=== PATIENT | male | born 1935 | race Caucasian/White ===

== ENCOUNTER 2017-03-09 13:37 | Inpatient (IN) | payer OTHER, MEDICARE ==
[~2017-03-09] VITALS: Ht 185.4 cm; Wt 62.4 kg
[~2017-03-09 13:37] MED LIST: ALPR1TAB3 PO; CHLO.12%30 SWISH-SPIT; CLIN1CAP5 PO; HYDR-3533 PO; SARA20TA PO
[2017-03-09] MEDS ORDERED: SODIUM CHLORIDE 0.9% FLUSH 10 ML FLUSH IVF PRN (13:45)
--- NOTE | 2017-03-09 13:45 | PD ---
HPI Chief Complaint: RT HIP PAIN Time Seen by Provider: 13:42 Travel History International Travel<30 days: No Contact w/Intl Traveler<30days: No Traveled to known affect area: No History of Present Illness HPI AFTER A MECHANICAL SLIP AND FALL , LANDED ON RT HIP AREA AND UNABLE TO PLACE WEIGHT OR AMBULATE, PER EMS GIVEN MORPHINE 10MG AND NOTED TO HAVE SHORTENED AND EXTERNALLY ROTATED RIGHT LE...INITIALLY 10/10, NOW 4/10 AND MUCH IMPROVED LONG HE'S STILL...WORSEWITH MOVEMENT PFSH Past Medical History Autoimmune Disease: No Anxiety: Yes Heart Rhythm Problems: Yes (presently irregular ) Cancer: No Chemotherapy: No Diabetes: No Endocrine: No Gastrointestinal Disorders: Yes Genitourinary: No Implanted Vascular Access Dvce: No Respiratory: No Radiation Therapy: No Thyroid Disease: No Past Surgical History Abdominal Surgery: Yes (choly ) Cholecystectomy: Yes Other Surgery: Yes Social History Alcohol Use: No Tobacco Use: Yes (1 PACK EVERY 3 DAYS) Substance Use: No Allergies-Medications (Allergen,Severity, Reaction): Coded Allergies: No Known Allergies (Unverified , 02/19/16) Reported Meds & Prescriptions Reported Meds & Active Scripts Active Reported Mirtazapine 15 Mg Tab 15 Mg PO HS Prozac (Fluoxetine HCl) 10 Mg Cap 20 Mg PO BID Alprazolam 1 Mg Tab 1 Mg PO Q6H PRN Review of Systems Except as stated in HPI: all other systems reviewed are Neg Musculoskeletal: Positive: Limited ROM, Pain Physical Exam Narrative GENERAL: SKIN: Warm and dry. HEAD: Atraumatic. Normocephalic. EYES: Pupils equal and round. No scleral icterus. No injection or drainage. ENT: No nasal bleeding or discharge. Mucous membranes pink and moist. NECK: Trachea midline. No JVD. CARDIOVASCULAR: Regular rate and rhythm. RESPIRATORY: No accessory muscle use. Clear to auscultation. Breath sounds equal bilaterally. GASTROINTESTINAL: Abdomen soft, non-tender, nondistended. Hepatic and splenic margins not palpable. MUSCULOSKELETAL: Extremities without clubbing, cyanosis, or edema. No obvious deformities. RIGHT LE SHORTENED AND EXTERNALLY ROTATED NEUROLOGICAL: Awake and alert. No obvious cranial nerve deficits. Motor grossly within normal limits. Five out of 5 muscle strength in the arms and legs. Normal speech. PSYCHIATRIC: Appropriate mood and affect; insight and judgment normal. Data Data Orders Electrocardiogram (03/09/17 13:45) Complete Blood Count With Diff (03/09/17 13:45) Comprehensive Metabolic Panel (03/09/17 13:45) Prothrombin Time / Inr (Pt) (03/09/17 13:45) Act Partial Throm Time (Ptt) (03/09/17 13:45) Urinalysis - C+S If Indicated (03/09/17 13:45) Chest, Single Ap (03/09/17 13:45) Hip, Uni(Ap&Lat) W Ap Pelvis (03/09/17 13:45) Iv Access Insert/Monitor (03/09/17 13:45) Oximetry (03/09/17 13:45) Ecg Monitoring (03/09/17 13:45) Sodium Chloride 0.9% Flush (Ns Flush) (03/09/17 13:45) Admit Order (Ed Use Only) (03/09/17 15:33) Labs Laboratory Tests Test 03/09/17 14:11 White Blood Count 12.7 TH/MM3 Red Blood Count 4.28 MIL/MM3 Hemoglobin 12.5 GM/DL Hematocrit 38.3 % Mean Corpuscular Volume 89.4 FL Mean Corpuscular Hemoglobin 29.2 PG Mean Corpuscular Hemoglobin 32.6 % Concent Red Cell Distribution Width 14.2 % Platelet Count 304 TH/MM3 Mean Platelet Volume 8.5 FL Neutrophils (%) (Auto) 65.9 % Lymphocytes (%) (Auto) 24.1 % Monocytes (%) (Auto) 7.3 % Eosinophils (%) (Auto) 2.1 % Basophils (%) (Auto) 0.6 % Neutrophils # (Auto) 8.4 TH/MM3 Lymphocytes # (Auto) 3.1 TH/MM3 Monocytes # (Auto) 0.9 TH/MM3 Eosinophils # (Auto) 0.3 TH/MM3 Basophils # (Auto) 0.1 TH/MM3 CBC Comment DIFF FINAL Differential Comment Prothrombin Time 11.8 SEC Prothromb Time International 1.1 RATIO Ratio Activated Partial 25.2 SEC Thromboplast Time Sodium Level 140 MEQ/L Potassium Level 3.5 MEQ/L Chloride Level 106 MEQ/L Carbon Dioxide Level 26.6 MEQ/L Anion Gap 7 MEQ/L Blood Urea Nitrogen 14 MG/DL Creatinine 0.97 MG/DL Estimat Glomerular Filtration 74 ML/MIN Rate Random Glucose 118 MG/DL Calcium Level 8.4 MG/DL Total Bilirubin 0.4 MG/DL Aspartate Amino Transf 18 U/L (AST/SGOT) Alanine Aminotransferase 13 U/L (ALT/SGPT) Alkaline Phosphatase 87 U/L Total Protein 6.9 GM/DL Albumin 3.2 GM/DL MDM Medical Decision Making Medical Screen Exam Complete: Yes Emergency Medical Condition: Yes Medical Record Reviewed: Yes Interpretation(s) NSR 92 WITH PAC, LVH AND ST DEP INFERIOLATERALLY Differential Diagnosis HIP CONTUSION V FRACTURE V DISLOCATION V FEMUR RELATED FX Narrative Course PATIENT'S DEFORMITY SUGGESTED HIP FX, XRAY USED TO CONFIRM, AND INDEED PT HAD AN INTERTROCHANTERIC FX OF RIGHT HIP...LUI WILL BE INITIATED, AND CALL TO HAVE PT ADMITTED Diagnosis Primary Impression: Intertrochanteric fracture of right hip Qualified Code: S72.141A - Closed displaced intertrochanteric fracture of right femur, initial encounter Admitting Information Admitting Physician Requests: Admit Ge Villa MD Mar 09, 2017 13:45
[2017-03-09] MEDS ORDERED: ALPR1TAB3 PO (13:56)
[2017-03-09] MEDS ORDERED: FLUO-1 PO (13:56)
[2017-03-09 14:19] LABS: AUTOMATED NEUTROPHIL # 8.4 TH/MM3 (1.8-7.7); BASOPHIL # 0.1 TH/MM3 (0-0.2); BASOPHIL % 0.6 % (0.0-2.0); EOSINOPHIL # 0.3 TH/MM3 (0-0.4); EOSINOPHIL % 2.1 % (0.0-4.0); HEMATOCRIT 38.3 % (39.0-51.0); HEMO FLAGS DIFF FINAL; LYMPH % 24.1 % (9.0-44.0); LYMPHOCYTE # 3.1 TH/MM3 (1.0-4.8); MEAN CELL VOLUME 89.4 FL (80.0-100.0); MEAN CORPUSCULAR HEMOGLOBIN 29.2 PG (27.0-34.0); MEAN CORPUSCULAR HGB CONC 32.6 % (32.0-36.0); MONO % 7.3 % (0.0-8.0); NEUT % 65.9 % (16.0-70.0); PLATELET COUNT 304 TH/MM3 (150-450); RED BLOOD COUNT 4.28 MIL/MM3 (4.50-5.90); RED CELL DISTRIBUTION WIDTH 14.2 % (11.6-17.2); WHITE BLOOD COUNT 12.7 TH/MM3 (4.0-11.0)
[2017-03-09 14:28] LABS: APTT (PATIENT) 25.2 SEC (24.3-30.1); INTERNATIONAL NORMALIZED RATIO 1.1 RATIO; PROTHROMBIN TIME - PATIENT 11.8 SEC (9.8-11.6)
[2017-03-09 14:38] LABS: ANION GAP 7 MEQ/L (5-15); AST (GOT) 18 U/L (15-37); BICARBONATE 26.6 MEQ/L (21.0-32.0); BLOOD UREA NITROGEN 14 MG/DL (7-18); CHLORIDE 106 MEQ/L (98-107); GLOMERULAR FILTRATION RATE 74 ML/MIN (>89); POTASSIUM 3.5 MEQ/L (3.5-5.1); SODIUM (NA) 140 MEQ/L (136-145)
[2017-03-09 14:39] LABS: ALT (GPT) 13 U/L (12-78)
[2017-03-09 14:41] LABS: ALKALINE PHOSPHATASE 87 U/L (45-117); TOTAL BILIRUBIN ADULT 0.4 MG/DL (0.2-1.0)
[2017-03-09] MEDS ORDERED: MIRTA15 PO (14:53)
--- NOTE | 2017-03-09 14:57 | RADRPT ---
EXAM DATE/TIME: 03/09/2017 14:35 [facility] COMPARISON: CHEST SINGLE AP, October 03, 2014, 15:38. INDICATIONS : Trauma. Fall on right side today. MEDICAL HISTORY : Cardiovascular disease. SURGICAL HISTORY : Cholecystectomy. ENCOUNTER: Initial ACUITY: 1 day PAIN SCORE: 5/10 LOCATION: Bilateral chest FINDINGS: Mild increased interstitial markings are noted bilaterally. The heart is stable. No alveolar consol idation is noted. No pneumothorax is noted. CONCLUSION: 1. Mild diffuse increased interstitial markings consistent with acute or chronic interstitial diseas e. 2. No focal alveolar consolidation or pneumothorax. Casey Pacheco MD on March 09, 2017 at 14:53 Board Certified Radiologist. This report was verified electronically.
--- NOTE | 2017-03-09 15:03 | RADRPT ---
EXAM DATE/TIME: 03/09/2017 14:30 [facility] COMPARISON: No previous studies available for comparison. INDICATIONS : Right hip pain after fall today. MEDICAL HISTORY : None. SURGICAL HISTORY : None. ENCOUNTER: Initial ACUITY: 1 day PAIN SCORE: 10/10 LOCATION: Right hip. FINDINGS: An acute comminuted intertrochanteric fracture of the right proximal femur is noted. Degenerative ch anges are noted involving the lower lumbar spine. CONCLUSION: 1. Acute comminuted displaced intertrochanteric fracture of the right proximal femur. 2. Degenerative changes involving the lower lumbar spine. Casey Pacheco MD on March 09, 2017 at 14:54 Board Certified Radiologist. This report was verified electronically.
[2017-03-09] MEDS: SODIUM CHLOR 0.9% 1000 ML INJ 1,000 ML IV SCH (16:04)
[2017-03-09 16:08] VITALS: BP 125/84; PULSE 104; RESP 22; O2SAT 98
--- NOTE | 2017-03-09 16:27 | HHI.HP ---
HPI Service [facility] Primary Care Physician Unknown Admission Diagnosis RIGHT INTERTROCAHNTERIC FX S/P TRIP AND FALL Diagnoses: Travel History International Travel<30 Days: No Contact w/Intl Traveler <30 Da: No Traveled to Known Affected Are: No History of Present Illness 81-year-old white male being admitted for a right intertrochanteric hip fracture. Patient was in his usual state of health until earlier today when he was getting up from his chair and took a step with his right foot which got caught or stuck on the floor causing him to fall towards his right side landing on his right hip resulting in intense pain. Patient stated that it hurt so bad that just moving his left leg would ultimately result in pain in his right leg. He denies feeling any lightheadedness or losing consciousness before during or after the incident. Denies any chest pain, shortness of breath, or palpitations. He reports having chronic vertigo for which he is undergoing rehabilitation via the order of his PCP and/or neurologist. is present at bedside. Patient states that he would like to be a full code, but just does not want to be on a ventilator machine if he becomes a vegetable on "life support". Review of Systems Patient does report having history of dyspnea on exertion. All other systems reviewed and are negative. Past Family Social History Past Medical History PTSD, vertigo Past Surgical History Cholecystectomy Reported Medications Reported Meds & Active Scripts Active Reported Mirtazapine 15 Mg Tab 15 Mg PO HS Prozac (Fluoxetine HCl) 10 Mg Cap 20 Mg PO BID Alprazolam 1 Mg Tab 1 Mg PO Q6H PRN Allergies: Coded Allergies: No Known Allergies (Unverified , 02/19/16) Family History Father dying of heart attack at 56 Social History Retired, lives with his , used to be in the , then worked at a [employer]. Acquired PTSD from incident. Has smoked for over 40 years , roughly 1 pack lasting him 3 days. Denies ever having history of regular alcohol usage, denies any illicit drug use ever. Physical Exam Vital Signs Vital Signs Date Time Temp Pulse Resp B/P Pulse Ox O2 Delivery O2 Flow Rate FiO2 03/09/17 16:08 104 22 125/84 98 Physical Exam GENERAL: This is a well-nourished, well-developed elderly white male,in no apparent distress. SKIN: Chronic skin changes from aging, has what appears to be a bruise on his right lateral forearm which the patient states is chronic and not from today's incident AD: Atraumatic. Normocephalic. No temporal or scalp tenderness. EYES: Pupils equal round and reactive. Extraocular motions intact. No scleral icterus. ENT: Uvula midline. Airway patent. Chest: Barrel chest upon inspection CARDIOVASCULAR: Regular rate and rhythm without murmurs, gallops, or rubs. RESPIRATORY: Clear to auscultation. Breath sounds equal bilaterally. No wheezes , rales, or rhonchi. GASTROINTESTINAL: Abdomen soft, non-tender, nondistended. No hepato-splenomegaly , or palpable masses. No guarding. MUSCULOSKELETAL: Extremities without clubbing, cyanosis, or edema. Right lower extremity is laterally rotated and shortened compared to left NEUROLOGICAL: Awake and alert. Has intact sensation on bilateral lower extremities Normal speech. Laboratory Laboratory Tests Test 03/09/17 14:11 White Blood Count 12.7 Red Blood Count 4.28 Hemoglobin 12.5 Hematocrit 38.3 Mean Corpuscular Volume 89.4 Mean Corpuscular Hemoglobin 29.2 Mean Corpuscular Hemoglobin 32.6 Concent Red Cell Distribution Width 14.2 Platelet Count 304 Mean Platelet Volume 8.5 Neutrophils (%) (Auto) 65.9 Lymphocytes (%) (Auto) 24.1 Monocytes (%) (Auto) 7.3 Eosinophils (%) (Auto) 2.1 Basophils (%) (Auto) 0.6 Neutrophils # (Auto) 8.4 Lymphocytes # (Auto) 3.1 Monocytes # (Auto) 0.9 Eosinophils # (Auto) 0.3 Basophils # (Auto) 0.1 CBC Comment DIFF FINAL Differential Comment Prothrombin Time 11.8 Prothromb Time International 1.1 Ratio Activated Partial 25.2 Thromboplast Time Sodium Level 140 Potassium Level 3.5 Chloride Level 106 Carbon Dioxide Level 26.6 Anion Gap 7 Blood Urea Nitrogen 14 Creatinine 0.97 Estimat Glomerular Filtration 74 Rate Random Glucose 118 Calcium Level 8.4 Total Bilirubin 0.4 Aspartate Amino Transf 18 (AST/SGOT) Alanine Aminotransferase 13 (ALT/SGPT) Alkaline Phosphatase 87 Total Protein 6.9 Albumin 3.2 Result Diagram: 03/09/17 1411 03/09/17 1411 Imaging Last 24 hours Impressions Chest X-Ray 03/09/17 1345 Signed Impressions: Service Date/Time: Thursday, March 09, 2017 14:35 - CONCLUSION: 1. Mild diffuse increased interstitial markings consistent with acute or chronic interstitial disease. 2. No focal alveolar consolidation or pneumothorax. Casey Pacheco MD Last Impressions Chest X-Ray 03/09/17 1345 Signed Impressions: Service Date/Time: Thursday, March 09, 2017 14:35 - CONCLUSION: 1. Mild diffuse increased interstitial markings consistent with acute or chronic interstitial disease. 2. No focal alveolar consolidation or pneumothorax. Casey Pacheco MD Assessment and Plan Problem List: (1) Intertrochanteric fracture of right hip ICD Code: S72.141A Status: Acute (2) Vertigo ICD Code: R42 Status: Acute (3) Post-traumatic stress syndrome ICD Code: F43.10 Status: Chronic Assessment and Plan 81-year-old white male being admitted for right comminuted intertrochanteric fracture. Clinically stable upon admission. Independently reviewed a chest x- ray which shows emphysematous lung parenchymal which is likely result from the patient's long history of smoking. Upon asking the patient, he reports having some weight loss over the past year which amounts to around 40-50 pounds. He states that he did have this related to his regular doctor, had a chest CT scan done sometime in the last 6 months and says that he was told that he had no abnormal findings concerning for cancer. Fracture - orthopedics been consulted, anticipate surgery tomorrow. Pain management and anticoagulation by primary. Bed rest with fall precautions. Vertigo - fall precautions PTSD - continue home Prozac and alprazolam and Remeron Leukocytosis - likely stress reaction from hip fracture Smoking - nicotine patch. Code Status full code Physician Certification 2 Midnight Certification Type: Admission for Inpatient Services Order for Inpatient Services The services are ordered in accordance with Medicare regulations or non- Medicare payer requirements, as applicable. In the case of services not specified as inpatient-only, they are appropriately provided as inpatient services in accordance with the 2-midnight benchmark. Estimated LOS (days): 3 3 days is the estimated time the patient will need to remain in the hospital, assuming treatment plan goals are met and no additional complications. Post-Hospital Plan: SNF Problem Qualifiers (1) Intertrochanteric fracture of right hip: Qualified Code: S72.141A - Closed displaced intertrochanteric fracture of right femur, initial encounter Jaya Anthony MD Mar 09, 2017 16:27
[2017-03-09 17:40] VITALS: BP 120/69; PULSE 95; RESP 17; TEMP 96.7; O2SAT 96
[2017-03-09 20:00] VITALS: BP 135/71; PULSE 93; RESP 16; TEMP 97.4; O2SAT 97
[2017-03-09] MEDS: MIRTAZAPINE 15 MG TAB PO SCH (20:48)
[2017-03-09] MEDS: FLUoxetine HCL 20 MG CAP PO SCH (20:48)
[2017-03-09] MEDS: REMOVE OLD PATCH T-DERMAL SCH (20:50)
[2017-03-09] MEDS: SODIUM CHLORIDE 0.9% FLUSH 10 ML FLUSH IV FLUSH SCH (20:51)
[2017-03-09] MEDS ORDERED: ACETAMINOPHEN/HYDROcodone 325 MG/5 MG TAB PO PRN (21:00)
[2017-03-10] VITALS: BP 130/77; PULSE 86; RESP 17; TEMP 98; O2SAT 96
[2017-03-10] MEDS: SODIUM CHLOR 0.9% 1000 ML INJ 1,000 ML IV SCH ×2 (03:14→18:24)
[2017-03-10 04:00] VITALS: BP 142/82; PULSE 91; RESP 16; TEMP 98.6; O2SAT 98
[2017-03-10 04:13] LABS: BLOOD, URINE NEG (NEG); GLUCOSE,URINE NEG (NEG); KETONE, URINE TRACE mg/dL (NEG); MUCUS URINE FEW /lpf (OCC); NITRITE,URINE NEG (NEG); PH, URINE 5.5 (5.0-8.5); SQUAMOUS EPITHELIAL CELL URINE <1 /hpf (0-5); URINE COLOR YELLOW (YELLW/STRAW)
[2017-03-10 04:14] LABS: COMMENT (UR) CATH-CULT NOT IND; CULTURE IF INDICATED CATH CULTURE NOT IND
[2017-03-10] MEDS: ALPRAZolam 1 MG TAB PO PRN ×2 (08:17→16:41)
[2017-03-10] MEDS: FLUoxetine HCL 20 MG CAP PO SCH ×2 (08:25→20:41)
[2017-03-10] MEDS: NICOTINE 7 MG/24 HR PATCH T-DERMAL SCH (08:25)
[2017-03-10] MEDS: SODIUM CHLORIDE 0.9% FLUSH 10 ML FLUSH IV FLUSH SCH ×2 (08:25→20:42)
[2017-03-10] MEDS ORDERED: REMOVE OLD PATCH T-DERMAL SCH (09:00)
--- NOTE | 2017-03-10 13:19 | PD.CONS ---
cc: Alexander Dickerson Jr., MD HPI Service [facility] Consult Requested By Primary Care Physician Unknown Admission Diagnosis RIGHT INTERTROCAHNTERIC FX S/P TRIP AND FALL Diagnoses: (1) Intertrochanteric fracture of right hip Diagnosis: Principal (2) Vertigo Diagnosis: Principal (3) Post-traumatic stress syndrome Chief Complaint: Right intertrochanteric hip fracture History of Present Illness 81-year-old white male being admitted for a right intertrochanteric hip fracture. Patient has a past medical history of vertigo and has limited ambulatory capacity at home. s/p fall at home, c/o right hip pain and inability bear weight. Denies any head injuries. Denies loss of consciousness. Currently patient's pain is sharp, 6 out of 10, exacerbated by any range of motion, relieved at rest and with IV pain medicine, pain is sharp nonradiating, not associated with any paresthesia and numbness to the right lower extremity. Denies any chest pain, shortness of breath, or palpitations. He reports having chronic vertigo for which he is undergoing rehabilitation via the order of his PCP and/or neurologist. is present at bedside. Patient states that he would like to be a full code. Review of Systems Patient does report having history of dyspnea on exertion. All other systems reviewed and are negative. Past Family Social History Past Medical History PTSD, vertigo Past Surgical History Cholecystectomy Reported Medications Reported Meds & Active Scripts Active Reported Mirtazapine 15 Mg Tab 15 Mg PO HS Prozac (Fluoxetine HCl) 10 Mg Cap 20 Mg PO BID Alprazolam 1 Mg Tab 1 Mg PO Q6H PRN Allergies: Coded Allergies: No Known Allergies (Unverified , 02/19/16) Family History Father dying of heart attack at 56 Social History Retired, lives with his , used to be in the , then worked at a [employer]. Acquired PTSD from incident. Has smoked for over 40 years , roughly 1 pack lasting him 3 days. Denies ever having history of regular alcohol usage, denies any illicit drug use ever. Review of Systems Endocrine: DENIES: Heat/cold intolerance, Polydipsia, Polyuria, Polyphagia Eyes: DENIES: Blurred vision, Diplopia, Eye inflammation, Eye pain, Vision loss , Photosensitivity, Double Vision Ears, nose, mouth, throat: DENIES: Tinnitus, Hearing loss, Vertigo, Nasal discharge, Oral lesions, Throat pain, Hoarseness, Ear Pain, Running Nose, Epistaxis, Sinus Pain, Toothache, Odynophagia Gastrointestinal: DENIES: Abdominal pain, Black stools, Bloody stools, Constipation, Diarrhea, Nausea, Vomiting, Difficulty Swallowing, Anorexia Past Family Social History Past Medical History PTSD, vertigo Past Surgical History Cholecystectomy Allergies: Coded Allergies: No Known Allergies (Unverified , 02/19/16) Active Ordered Medications Current Medications Medications (Trade) Dose Ordered Sig/Yulisa Route Start Time Stop Time Status Last Admin Sodium Chloride 2 ml 2 ml UNSCH PRN IVF 03/09/17 13:45 (NS 1000 ml Inj) 1,000 ml @ 75 mls/hr [id number] IV 03/09/17 15:44 03/10/17 03:14 (NS Flush) 2 ml BID IV FLUSH 03/09/17 21:00 03/10/17 08:25 (Habitrol 7 Mg Patch.24 Hr) 1 patch DAILY T-DERMAL 03/10/17 09:00 Miscellaneous Information 1 HS T-DERMAL 03/09/17 21:00 (Xanax) 1 mg Q6H PRN PO 03/09/17 16:30 03/10/17 08:17 (PROzac) 20 mg BID PO 03/09/17 21:00 03/09/17 20:48 (Remeron) 15 mg HS PO 03/09/17 21:00 03/09/17 20:48 ([place] 5-325 Mg) 1 tab Q4H PRN PO 03/09/17 21:00 03/09/17 21:10 Reported Meds & Active Scripts Active Reported Mirtazapine 15 Mg Tab 15 Mg PO HS Prozac (Fluoxetine HCl) 10 Mg Cap 20 Mg PO BID Alprazolam 1 Mg Tab 1 Mg PO Q6H PRN Family History Father dying of heart attack at 56 Social History Retired, lives with his , used to be in the , 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 Acquired PTSD from incident. Has smoked for over 40 years , roughly 1 pack lasting him 3 days. Denies ever having history of regular alcohol usage, denies any illicit drug use ever. Physical Exam Vital Signs Vital Signs Date Time Temp Pulse Resp B/P Pulse Ox O2 Delivery O2 Flow Rate FiO2 03/10/17 08:12 Room Air 03/10/17 04:00 98.6 91 16 142/82 98 03/10/17 01:06 Room Air 03/10/17 00:00 98.0 86 17 130/77 96 03/09/17 22:10 18 03/09/17 20:00 97.4 93 16 135/71 97 03/09/17 17:40 96.7 95 17 120/69 96 03/09/17 16:08 104 22 125/84 98 Physical Exam Alert awake and oriented x 3. No acute distress. Head: NC/AT Neck: No pain with any range of motion and neck. Pulmonary: Normal respiratory effort. Bilateral upper extremity: No deformities Intact sensation distally in median, ulnar, and radial nerve. Intact motor in anterior interosseous, posterior interosseous, and ulnar nerve. 2+ radial artery pulses. Good cap refill. RIGHT lower extremity: Shortened and externally rotated. Positive log roll. grossly Neurovascularly intact, +EHL/FHL. + PT/DP pulses. Supple compartments. Negative Homans sign. LEFT lower extremity: No deformity, full left hip range of motion. grossly Neurovascularly intact, +EHL/FHL. + PT/DP pulses. Supple compartments. Negative Homans sign. Laboratory Laboratory Tests Test 03/09/17 03/10/17 14:11 03:50 White Blood Count 12.7 Red Blood Count 4.28 Hemoglobin 12.5 Hematocrit 38.3 Mean Corpuscular Volume 89.4 Mean Corpuscular Hemoglobin 29.2 Mean Corpuscular Hemoglobin 32.6 Concent Red Cell Distribution Width 14.2 Platelet Count 304 Mean Platelet Volume 8.5 Neutrophils (%) (Auto) 65.9 Lymphocytes (%) (Auto) 24.1 Monocytes (%) (Auto) 7.3 Eosinophils (%) (Auto) 2.1 Basophils (%) (Auto) 0.6 Neutrophils # (Auto) 8.4 Lymphocytes # (Auto) 3.1 Monocytes # (Auto) 0.9 Eosinophils # (Auto) 0.3 Basophils # (Auto) 0.1 CBC Comment DIFF FINAL Differential Comment Prothrombin Time 11.8 Prothromb Time International 1.1 Ratio Activated Partial 25.2 Thromboplast Time Sodium Level 140 Potassium Level 3.5 Chloride Level 106 Carbon Dioxide Level 26.6 Anion Gap 7 Blood Urea Nitrogen 14 Creatinine 0.97 Estimat Glomerular Filtration 74 Rate Random Glucose 118 Calcium Level 8.4 Total Bilirubin 0.4 Aspartate Amino Transf 18 (AST/SGOT) Alanine Aminotransferase 13 (ALT/SGPT) Alkaline Phosphatase 87 Total Protein 6.9 Albumin 3.2 Urine Color YELLOW Urine Turbidity CLEAR Urine pH 5.5 Urine Specific [place] 1.020 Urine Protein TRACE Urine Glucose (UA) NEG Urine Ketones TRACE Urine Occult Blood NEG Urine Nitrite NEG Urine Bilirubin NEG Urine Urobilinogen LESS THAN 2.0 Urine Leukocyte Esterase MOD Urine RBC 1 Urine WBC 4 Urine Squamous Epithelial <1 Cells Urine Hyaline Casts Urine Mucus FEW Microscopic Urinalysis Comment CATH-CULT NOT IND Result Diagram: 03/09/17 1411 03/09/17 1411 Imaging Last 72 hours Impressions Femur X-Ray 03/10/17 0000 Signed Impressions: Service Date/Time: Friday, March 10, 2017 12:46 - CONCLUSION: Intraoperative images. Ryan Chan MD Hip and Pelvis X-Ray 03/09/17 1345 Signed Impressions: Service Date/Time: Thursday, March 09, 2017 14:30 - CONCLUSION: 1. Acute comminuted displaced intertrochanteric fracture of the right proximal femur. 2. Degenerative changes involving the lower lumbar spine. Casey Pacheco MD Chest X-Ray 03/09/17 1345 Signed Impressions: Service Date/Time: Thursday, March 09, 2017 14:35 - CONCLUSION: 1. Mild diffuse increased interstitial markings consistent with acute or chronic interstitial disease. 2. No focal alveolar consolidation or pneumothorax. Casey Pacheco MD Assessment & Plan Assessment and Plan 81-year-old male with a significantly complicated past medical history including vertigo and frequent fall is status post fall on the right hip sustaining a right intertrochanteric femur fracture. He is otherwise neurovascularly intact at baseline. I recommend intramedullary kristopher fixation. I discussed my treatment plans with the patient, as well as risks, benefits and alternatives of surgical Intervention versus nonoperative treatment. In this case, the risks of operative intervention involves bleeding, infection, risks of damage to neurovascular structures, the risk of needing further surgery, posttraumatic arthritis and the risks involved with complication from anesthesia. We will proceed with the above procedure. The patient accepts these risks; understands and agrees with my recommendations. I also discussed my proposed postoperative care and follow-up plan. All questions were answered. Plan for OR []. Nothing by mouth []. Patient consented. Thanks for the consult, thanks for allowing me to participate in this patient's medical care. Alexander Dickerson Jr., MD Mar 10, 2017 13:19
--- NOTE | 2017-03-10 13:24 | PD.OP ---
cc: Alexander Dickerson Jr., MD Operative Report Date of Surgery: Mar 10, 2017 Preoperative Diagnosis: Right hip intertrochanteric femur fracture Postoperative Diagnosis: Same Procedure: Right hip intramedullary kristopher fixation Anesthesia: Gen. Surgeon: Alexander Dickerson Drill Press Operator(s): Staff Resident Surgeon: None Operation and Findings: DESCRIPTION OF PROCEDURE The patient was brought into the operating room where general endotracheal anesthesia was induced. Timeout was performed confirming patient identification , laterality, procedure to be performed, availability of all necessary instrumentation, and infusion of preoperative antibiotics, all of which was agreed upon by the entire operating staff. The patient was then transferred to the fracture table with the contraleral lower extremity placed in a flexed and abducted manner on the well-leg edgar, which was well padded. The right lower extremity was fixed to the traction boot after the central padded post had been stabilized. Fluoroscopic guidance was then used to perform a provisional reduction maneuver. The extremity was then prepped with and draped using a 3M shower curtain type drape. At this point, the incision was made just proximal to the lateral aspect of the greater trochanter. Sharp dissection was taken down to the tip of the greater trochanter, and a guidewire was then inserted in the appropriate position over the tip of the greater trochanter, verified on AP and lateral flouroscopic images. The proximal reamer was then used to the level of the lesser trochanter. A size 13mm reamer was then taken down with good chatter through the isthmus after a ball-tipped guidewire had been placed to the level of the superior pole of the patella. The ball-tipped guide wire was measured and found to have a length of 420 mm. Then a 11 mm diameter, 420 mm length, 130degree nail was then inserted in appropriate alignment. A lateral window was made at the appropriate site using the jig attached to the proximal aspect of the nail. Using AP and lateral fluoroscopic views, a guide wire was placed in the center-center position within 5mm of subchondral bone on both views. The wire was measured to be a 115mm and then over-reamed to the appropriate depth for a 10.5 diameter lag screw. A 10.5 x 115 mm length lag screw was then placed with fluoroscopic imaging confirming no neck rotation. Compression was applied after traction had been withdrawn and adequate cortical continuity was then obtained between the femoral neck and the medial proximal femoral shaft. The locking screw was then placed proximally after adequate compression had been obtained and final proximal AP and lateral fluoroscopic images were obtained showing adequate reduction. Attention was then turned to the knee. Using the perfect circles technique, a 5 mm distal locking screw was placed, which was measured to be 35 mm in length. Final fluoroscopic images were obtained showing adequacy of reduction as well as fixation. Wounds were copiously irrigated with saline and closed with 1 vicryl deep, 2-0 subcutaneous, and val on the skin. A sterile dressing was applied, the patient was awoken from general anesthesia and transferred to postop care unit in stable condition. There were no complications. IMPLANTS: S/N InterTAN 11mm, 130 degree neck angle, 420 mm long POSTOP PLAN: Antibiotics: ancef DVT prophy: lovenox (while admitted), xeralto at dc for 10 days, if patient not mobiliing well WB Staus: 50% WBAT PT: OOB TID Dressing: change by RN starting POD#2 Dispo: 2-3 days, dc to [facility] Alexander Dickerson Jr., MD Mar 10, 2017 13:24
[2017-03-10] MEDS ORDERED: NORC5TAB PO (13:26)
[2017-03-10] MEDS ORDERED: DO NOT ADM ANY ANTICOAGULANT DRUGS PRN (14:00)
--- NOTE | 2017-03-10 14:22 | HHI.PR ---
Subjective Remarks No acute events overnight. Afebrile, vital signs stable. Patient seen in PACU status post right hip intramedullary kristopher fixation. Denies pain. Endorses mild lightheadedness. Objective Vitals Vital Signs Date Time Temp Pulse Resp B/P Pulse Ox O2 Delivery O2 Flow Rate FiO2 03/10/17 14:00 81 22 139/72 99 Nasal Cannula 2 03/10/17 13:45 77 20 138/69 98 Nasal Cannula 2 03/10/17 13:30 83 20 131/65 98 Nasal Cannula 2 03/10/17 13:21 97.8 90 25 138/63 100 Non-Rebreather 6 03/10/17 08:12 Room Air 03/10/17 04:00 98.6 91 16 142/82 98 03/10/17 01:06 Room Air 03/10/17 00:00 98.0 86 17 130/77 96 03/09/17 22:10 18 03/09/17 20:00 97.4 93 16 135/71 97 03/09/17 17:40 96.7 95 17 120/69 96 03/09/17 16:08 104 22 125/84 98 I/O 03/09/17 03/09/17 03/09/17 03/10/17 03/10/17 03/10/17 07:00 15:00 23:00 07:00 15:00 23:00 Intake Total 865 ml 516 ml 1000 ml Output Total 350 ml 100 ml Balance 865 ml 166 ml 900 ml Intake Oral 360 ml 0 ml IV Total 505 ml 516 ml Other 1000 ml Output Urine Total 350 ml Estimated Blood Loss 100 ml Result Diagram: 03/09/17 1411 03/09/17 1411 Objective Remarks GENERAL: This is a well-nourished, well-developed elderly white male,in no apparent distress. SKIN: Chronic skin changes from aging, has what appears to be a bruise on his right lateral forearm which the patient states is chronic and not from today's incident AD: Atraumatic. Normocephalic. No temporal or scalp tenderness. EYES: Pupils equal round and reactive. Extraocular motions intact. No scleral icterus. ENT: Uvula midline. Airway patent. CARDIOVASCULAR: Regular rate and rhythm without murmurs, gallops, or rubs. RESPIRATORY: Clear to auscultation. Breath sounds equal bilaterally. No wheezes , rales, or rhonchi. GASTROINTESTINAL: Abdomen soft, non-tender, nondistended. No hepato-splenomegaly , or palpable masses. No guarding. MUSCULOSKELETAL: Extremities without clubbing, cyanosis, or edema. NEUROLOGICAL: Awake and alert. Normal speech. A/P Problem List: (1) Intertrochanteric fracture of right hip ICD Code: S72.141A Status: Acute (2) Vertigo ICD Code: R42 Status: Acute (3) Post-traumatic stress syndrome ICD Code: F43.10 Status: Chronic Assessment and Plan 81-year-old white male being admitted for right comminuted intertrochanteric fracture. Clinically stable upon admission. Independently reviewed a chest x- ray which shows emphysematous lung parenchymal which is likely result from the patient's long history of smoking. Upon asking the patient, he reports having some weight loss over the past year which amounts to around 40-50 pounds. He states that he did have this related to his regular doctor, had a chest CT scan done sometime in the last 6 months and says that he was told that he had no abnormal findings concerning for cancer. Intertrochanteric fracture of right hip - postop day #1 status post right hip intramedullary kristopher fixation. Pain controlled. Anticoagulation per orthopedic. Vertigo - fall precautions PTSD - continue home Prozac and alprazolam and Remeron Leukocytosis - likely stress reaction from hip fracture. Monitor Smoking - nicotine patch. Discharge Planning Pending orthopedic surgery clearance Problem Qualifiers (1) Intertrochanteric fracture of right hip: Qualified Code: S72.141A - Closed displaced intertrochanteric fracture of right femur, initial encounter Keli Pablo MD R3 Mar 10, 2017 14:22
[2017-03-10] MEDS ORDERED: MAGNESIUM HYDROXIDE SUSP 30 ML CUP PO PRN (15:30)
[2017-03-10] MEDS ORDERED: PROMETHAZINE HCL 25 MG TAB PO PRN (15:30)
[2017-03-10] MEDS ORDERED: SODIUM CHLORIDE 0.9% FLUSH 10 ML FLUSH IV FLUSH PRN (15:30)
[2017-03-10] MEDS ORDERED: ACETAMINOPHEN/HYDROcodone 325 MG/5 MG TAB PO PRN ×2 (15:30)
[2017-03-10] MEDS ORDERED: ZOLPIDEM TARTRATE 5 MG TAB PO PRN (15:30)
[2017-03-10] MEDS ORDERED: LACTULOSE SYRUP 20 GM/30 ML CUP PO PRN (15:30)
[2017-03-10] MEDS ORDERED: Post-op Orders (for Pharmacy) MISC XX ONE (15:30)
[2017-03-10] MEDS ORDERED: BISACODYL 10 MG SUPP RECTAL PRN (15:30)
[2017-03-10] MEDS ORDERED: MORPHINE SULFATE 8 MG/ML INJ IV PUSH PRN (15:30)
[2017-03-10] MEDS ORDERED: SENNOSIDES 8.6 MG TAB PO PRN (15:30)
[2017-03-10 15:50] VITALS: BP 146/78; PULSE 87; RESP 17; TEMP 98.4; O2SAT 96
--- NOTE | 2017-03-10 16:07 | EKG ---
Date Performed: 03/09/2017 Time Performed: 13:55:14 PTAGE: 81 years EKG: Sinus rhythm WITH OCCASIONAL PACs PROBABLE LVH NONSPECIFIC ST-T CHANGES WHICH MAY BE DUE TO LVH Since previous tr acing, no significant change noted ABNORMAL ECG PREVIOUS TRACING 10/03/2014 14.30.58 DOCTOR: Haroon Calle Interpretating Date/Time 03/10/2017 16:06:30
--- NOTE | 2017-03-10 16:07 | EKG ---
Date Performed: 03/10/2017 Time Performed: 03:48:20 PTAGE: 81 years EKG: Sinus rhythm with PAC(s) Probable LVH Diffused nonspecific ST-T change Since previous tracing, no significant alvarez nge noted Abnormal ECG PREVIOUS TRACING : 03/09/2017 13.55 DOCTOR: Haroon Calle Interpretating Date/Time 03/10/2017 16:07:21
--- NOTE | 2017-03-10 16:20 | RADRPT ---
EXAM DATE/TIME: 03/10/2017 12:46 [place] COMPARISON: No previous studies available for comparison. INDICATIONS : Surgical repair. MEDICAL HISTORY : None. SURGICAL HISTORY : None. ENCOUNTER: Initial ACUITY: 1 day PAIN SCORE: Non-responsive. LOCATION: Right femur. FINDINGS: 5 images were recorded digitally in the operating room using C-arm during placement of intramedullary kristopher in the femur and interlocking screw in the femoral head and neck. There is one distal intercala vargas screw. CONCLUSION: Intraoperative images. Ryan Chan MD on March 10, 2017 at 16:17 Board Certified Radiologist. This report was verified electronically.
[2017-03-10] MEDS: KETOROLAC TROMETHAMINE 30 MG/ML (IVP) VIAL IVP SCH (16:42)
[2017-03-10 17:28] VITALS: O2SAT 94
[2017-03-10 19:55] VITALS: BP 119/68; PULSE 86; RESP 18; TEMP 98.2; O2SAT 96
[2017-03-10] MEDS: MIRTAZAPINE 15 MG TAB PO SCH (20:41)
[2017-03-10] MEDS: DOCUSATE SODIUM 50 MG/SENNA 8.6 MG TAB PO SCH (20:41)
[2017-03-10] MEDS: REMOVE OLD PATCH T-DERMAL SCH (20:42)
[2017-03-10 23:25] VITALS: BP 102/64; PULSE 92; RESP 18; TEMP 98; O2SAT 96
[2017-03-11] MEDS: KETOROLAC TROMETHAMINE 30 MG/ML (IVP) VIAL IVP SCH ×5 (00:54→21:24)
[2017-03-11] MEDS: ALPRAZolam 1 MG TAB PO PRN ×3 (00:55→16:55)
[2017-03-11 03:45] VITALS: BP 115/65; PULSE 65; RESP 18; TEMP 97.3; O2SAT 98
[2017-03-11 07:43] VITALS: BP 125/66; PULSE 95; RESP 18; TEMP 98; O2SAT 95
[2017-03-11] MEDS: SODIUM CHLOR 0.9% 1000 ML INJ 1,000 ML IV SCH ×2 (07:44→21:04)
[2017-03-11] MEDS: SODIUM CHLORIDE 0.9% FLUSH 10 ML FLUSH IV FLUSH SCH ×2 (09:35→21:25)
[2017-03-11] MEDS: FLUoxetine HCL 20 MG CAP PO SCH ×2 (09:36→21:24)
[2017-03-11] MEDS: NICOTINE 7 MG/24 HR PATCH T-DERMAL SCH (09:36)
[2017-03-11] MEDS: DOCUSATE SODIUM 50 MG/SENNA 8.6 MG TAB PO SCH ×2 (09:37→21:00)
[2017-03-11 12:00] VITALS: BP 98/60; PULSE 110; RESP 18; TEMP 96.1; O2SAT 98
[2017-03-11] MEDS: ENOXAPARIN SODIUM 30 MG/0.3 ML SYRINGE SQ SCH (12:24)
[2017-03-11] MEDS ORDERED: ONDANSETRON HCL 4 MG/2 ML VIAL IV PUSH PRN (14:00)
[2017-03-11 16:00] VITALS: BP 94/64; PULSE 90; RESP 18; TEMP 96.5; O2SAT 96
--- NOTE | 2017-03-11 16:26 | HHI.PR ---
Subjective Remarks Patient was evaluated around noon today. Patient feeling okay. Pain is currently controlled. He currently has vertigo which is chronic for him, for which she does physical therapy at home. No nausea or vomiting at this time Objective Vitals Vital Signs Date Time Temp Pulse Resp B/P Pulse Ox O2 Delivery O2 Flow Rate FiO2 03/11/17 12:00 96.1 110 18 98/60 98 03/11/17 09:37 Nasal Cannula 2.00 21 03/11/17 07:43 98.0 95 18 125/66 95 03/11/17 03:45 97.3 65 18 115/65 98 03/10/17 23:25 98.0 92 18 102/64 96 03/10/17 19:55 98.2 86 18 119/68 96 03/10/17 17:28 94 21 I/O 03/10/17 03/10/17 03/10/17 03/11/17 03/11/17 03/11/17 07:00 15:00 23:00 07:00 15:00 23:00 Intake Total 516 ml 1000 ml 480 ml 240 ml Output Total 350 ml 100 ml 900 ml 400 ml Balance 166 ml 900 ml -420 ml -160 ml Intake Oral 0 ml 480 ml 240 ml IV Total 516 ml Other 1000 ml Output Urine Total 350 ml 900 ml 400 ml Estimated Blood Loss 100 ml # Bowel Movements 0 0 Result Diagram: 03/09/17 1411 03/09/17 1411 Imaging Last Impressions Femur X-Ray 03/10/17 0000 Signed Impressions: Service Date/Time: Friday, March 10, 2017 12:46 - CONCLUSION: Intraoperative images. Ryan Chan MD Hip and Pelvis X-Ray 03/09/17 1345 Signed Impressions: Service Date/Time: Thursday, March 09, 2017 14:30 - CONCLUSION: 1. Acute comminuted displaced intertrochanteric fracture of the right proximal femur. 2. Degenerative changes involving the lower lumbar spine. Casey Pacheco MD Chest X-Ray 03/09/17 1000 Signed Impressions: Service Date/Time: Thursday, March 09, 2017 14:35 - CONCLUSION: 1. Mild diffuse increased interstitial markings consistent with acute or chronic interstitial disease. 2. No focal alveolar consolidation or pneumothorax. Casey Pacheco MD Objective Remarks GENERAL: This is a well-nourished, well-developed elderly white male EYES: Extraocular motions intact. No scleral icterus. ENT: Airway patent. CARDIOVASCULAR: Regular rate and rhythm without murmurs RESPIRATORY: Clear to auscultation. Breath sounds equal bilaterally. No wheezes GASTROINTESTINAL: Abdomen soft, non-tender, nondistended. No guarding. MUSCULOSKELETAL: Extremities edema. Dressing over her extremity dry clean and intact NEUROLOGICAL: Awake and alert. Normal speech. A/P Problem List: (1) Intertrochanteric fracture of right hip ICD Code: S72.141A Status: Acute (2) Vertigo ICD Code: R42 Status: Acute (3) Post-traumatic stress syndrome ICD Code: F43.10 Status: Chronic Assessment and Plan 81-year-old white male being admitted for right comminuted intertrochanteric fracture. Clinically stable upon admission. chest x-ray wemphysematous lung parenchymal which is likely result from the patient's long history of smoking. On admission patient reported having some weight loss over the past year which amounts to around 40-50 pounds. He stated on admission that he did have this related to his regular doctor, had a chest CT scan done sometime in the last 6 months and says that he was told that he had no abnormal findings concerning for cancer. Intertrochanteric fracture of right hip - postop day #1 status post right hip intramedullary kristopher fixation. Pain controlled. Anticoagulation per orthopedic. Vertigo - fall precautions, physical therapy PTSD - continue home Prozac and alprazolam and Remeron Leukocytosis - likely stress reaction from hip fracture. Monitor Smoking - nicotine patch. Discharge Planning DC when cleared by ortho Problem Qualifiers (1) Intertrochanteric fracture of right hip: Qualified Code: S72.141A - Closed displaced intertrochanteric fracture of right femur, initial encounter Megan Cote MD Mar 11, 2017 16:25
[2017-03-11 19:00] VITALS: BP 109/55; PULSE 88; RESP 17; TEMP 96.6; O2SAT 97
--- NOTE | 2017-03-11 20:31 | PD.ORT.PN ---
Subjective Subjective Remarks pain controlled. participating with PT. no issues Objective Vitals Vital Signs Date Time Temp Pulse Resp B/P Pulse Ox O2 Delivery O2 Flow Rate FiO2 03/11/17 19:00 96.6 88 17 109/55 97 03/11/17 17:57 21 03/11/17 16:00 96.5 90 18 94/64 96 03/11/17 12:00 96.1 110 18 98/60 98 03/11/17 09:37 Nasal Cannula 2.00 21 03/11/17 07:43 98.0 95 18 125/66 95 03/11/17 03:45 97.3 65 18 115/65 98 03/10/17 23:25 98.0 92 18 102/64 96 I/O 03/10/17 03/10/17 03/10/17 03/11/17 03/11/17 03/11/17 07:00 15:00 23:00 07:00 15:00 23:00 Intake Total 516 ml 1000 ml 480 ml 720 ml Output Total 350 ml 100 ml 900 ml 400 ml Balance 166 ml 900 ml -420 ml 320 ml Intake Oral 0 ml 480 ml 720 ml IV Total 516 ml Other 1000 ml Output Urine Total 350 ml 900 ml 400 ml Estimated Blood Loss 100 ml # Voids 2 # Bowel Movements 0 2 Result Diagram: 03/09/17 1411 03/09/17 1411 Objective Remarks RLE- nvi. dressing CDI Assessment & Plan Assessment and Plan POD-1 right hip IMN for IT femur fx doing well 50% WB dressing- change POD 2 lovenox likely dc to SNF pain rx in chart Alexander Dickerson Jr., MD Mar 11, 2017 20:31
[2017-03-11] MEDS: REMOVE OLD PATCH T-DERMAL SCH (21:00)
[2017-03-11] MEDS: MULTIVITAMINS/MINERALS THERAPEUTIC TAB PO SCH (21:24)
[2017-03-11] MEDS: MIRTAZAPINE 15 MG TAB PO SCH (21:24)
[2017-03-12] VITALS: BP 108/59; PULSE 84; RESP 17; TEMP 97.6; O2SAT 96
[2017-03-12] MEDS: ENOXAPARIN SODIUM 30 MG/0.3 ML SYRINGE SQ SCH ×2 (00:49→12:57)
[2017-03-12] MEDS: KETOROLAC TROMETHAMINE 30 MG/ML (IVP) VIAL IVP SCH ×2 (04:43→11:47)
[2017-03-12 08:00] VITALS: BP 121/70; PULSE 88; RESP 18; TEMP 96.4; O2SAT 98
[2017-03-12 08:04] LABS: HEMATOCRIT 23.5 % (39.0-51.0); REVIEW FLAG FINAL
[2017-03-12 08:26] LABS: BICARBONATE 30.8 MEQ/L (21.0-32.0); POTASSIUM 3.8 MEQ/L (3.5-5.1)
[2017-03-12] MEDS: MULTIVITAMINS/MINERALS THERAPEUTIC TAB PO SCH (08:47)
[2017-03-12] MEDS: DOCUSATE SODIUM 50 MG/SENNA 8.6 MG TAB PO SCH (08:47)
[2017-03-12] MEDS: NICOTINE 7 MG/24 HR PATCH T-DERMAL SCH (08:47)
[2017-03-12] MEDS: FLUoxetine HCL 20 MG CAP PO SCH (08:47)
[2017-03-12] MEDS: SODIUM CHLORIDE 0.9% FLUSH 10 ML FLUSH IV FLUSH SCH (08:48)
[2017-03-12] MEDS: ALPRAZolam 1 MG TAB PO PRN (08:57)
[2017-03-12 10:00] VITALS: O2SAT 98
[2017-03-12] MEDS: SODIUM CHLOR 0.9% 1000 ML INJ 1,000 ML IV SCH (11:48)
[2017-03-12 12:00] VITALS: BP 98/66; PULSE 92; RESP 18; TEMP 98.2; O2SAT 96
[2017-03-12] MEDS ORDERED: SENN1TAB PO (13:05)
--- NOTE | 2017-03-12 13:10 | HHI.DS ---
Discharge Summary Admission Date Mar 09, 2017 at 15:35 Discharge Date: Mar 12, 2017 Admitting Diagnosis RIGHT INTERTROCAHNTERIC FX S/P TRIP AND FALL (1) Intertrochanteric fracture of right hip ICD Code: S72.141A Diagnosis: Principal (2) Vertigo ICD Code: R42 Diagnosis: Principal (3) Post-traumatic stress syndrome ICD Code: F43.10 Procedures right hip IMN for IT femur fx Brief History - From Admission 81-year-old white male being admitted for a right intertrochanteric hip fracture. Patient was in his usual state of health until earlier today when he was getting up from his chair and took a step with his right foot which got caught or stuck on the floor causing him to fall towards his right side landing on his right hip resulting in intense pain. Patient stated that it hurt so bad that just moving his left leg would ultimately result in pain in his right leg. He denies feeling any lightheadedness or losing consciousness before during or after the incident. Denies any chest pain, shortness of breath, or palpitations. He reports having chronic vertigo for which he is undergoing rehabilitation via the order of his PCP and/or neurologist. is present at bedside. Patient states that he would like to be a full code, but just does not want to be on a ventilator machine if he becomes a vegetable on "life support". CBC/BMP: 03/12/17 0703 03/12/17 0703 Significant Findings Laboratory Tests Test 03/09/17 03/10/17 03/12/17 14:11 03:50 07:03 White Blood Count 12.7 TH/MM3 (4.0-11.0) Red Blood Count 4.28 MIL/MM3 (4.50-5.90) Hemoglobin 12.5 GM/DL 7.7 GM/DL (13.0-17.0) (13.0-17.0) Hematocrit 38.3 % 23.5 % (39.0-51.0) (39.0-51.0) Neutrophils # (Auto) 8.4 TH/MM3 (1.8-7.7) Prothrombin Time 11.8 SEC (9.8-11.6) Estimat Glomerular Filtration 74 ML/MIN (>89) 79 ML/MIN (>89) Rate Random Glucose 118 MG/DL (74-106) Calcium Level 8.4 MG/DL 8.1 MG/DL (8.5-10.1) (8.5-10.1) Albumin 3.2 GM/DL (3.4-5.0) Urine Ketones TRACE mg/dL (NEG) Urine Leukocyte Esterase MOD (NEG) Urine Mucus FEW /lpf (OCC) Chloride Level 108 MEQ/L (98-107) Anion Gap 4 MEQ/L (5-15) Blood Urea Nitrogen 31 MG/DL (7-18) Imaging Last Impressions Femur X-Ray 03/10/17 0000 Signed Impressions: Service Date/Time: Friday, March 10, 2017 12:46 - CONCLUSION: Intraoperative images. Ryan Chan MD Hip and Pelvis X-Ray 03/09/17 1345 Signed Impressions: Service Date/Time: Thursday, March 09, 2017 14:30 - CONCLUSION: 1. Acute comminuted displaced intertrochanteric fracture of the right proximal femur. 2. Degenerative changes involving the lower lumbar spine. Casey Pacheco MD Chest X-Ray 03/09/17 1345 Signed Impressions: Service Date/Time: Thursday, March 09, 2017 14:35 - CONCLUSION: 1. Mild diffuse increased interstitial markings consistent with acute or chronic interstitial disease. 2. No focal alveolar consolidation or pneumothorax. Casey Pacheco MD PE at Discharge GENERAL: This is a well-nourished, well-developed elderly white male EYES: Extraocular motions intact. ENT: Airway patent. CARDIOVASCULAR: Regular rate and rhythm without murmurs RESPIRATORY: Clear to auscultation. Breath sounds equal bilaterally. No wheezes GASTROINTESTINAL: Abdomen soft, non-tender, nondistended. No guarding. MUSCULOSKELETAL: Extremities edema. Dressing over her extremity dry clean and intact NEUROLOGICAL: Awake and alert. Normal speech. Pt update on day of discharge Pt doing well. Vertigo resolved. No CP/SOB/Lightheadedness or dizziness/n/v Hospital Course 81-year-old white male being admitted for right comminuted intertrochanteric fracture. Clinically stable upon admission. chest x-ray w emphysematous lung parenchymal which is likely result from the patient's long history of smoking. On admission patient reported having some weight loss over the past year which amounts to around 40-50 pounds. He stated on admission that he did have this related to his regular doctor, had a chest CT scan done sometime in the last 6 months and says that he was told that he had no abnormal findings concerning for cancer. Intertrochanteric fracture of right hip - postop day #2 status post right hip intramedullary kristopher fixation. Pain controlled. Discussed w Dr. Dickerson and from his standpoint pt is cleared for discharge. Per Ortho no need for anticoagulation once discharged Anemia: post surgery. Hb at 7.7. Pt asymptomatic. f/u Hb as an outpatient. Vertigo - fall precautions, physical therapy d/c to SNF Pt Condition on Discharge: Stable Discharge Disposition: Discharge to SNF Discharge Time: > 30 minutes Discharge Instructions DIET: Follow Instructions for: Heart Healthy Diet Activities you can perform: See Additionl Instruction Follow up Referrals: Orthopedics - 2 Weeks PCP Follow-up - 1 Week New Orders: CBC WITH DIFF - 2-3 Days New Medications: Hydrocodone-Acetaminophen (Vina) 5-325 mg Tab 1 TAB PO Q4H PRN PAIN #30 Ref 0 TAB Sennosides-Docusate Sodium (Senna Plus 8.6-50 mg) 1 Tab Tab 1 TAB PO BID Constipation Days 30 TAB Continued Medications: Alprazolam (Alprazolam) 1 Mg Tab 1 MG PO Q6H PRN ANXIETY Ref 0 TAB Fluoxetine (Prozac) 10 Mg Cap 20 MG PO BID Ref 0 CAP Mirtazapine (Mirtazapine) 15 Mg Tab 15 MG PO HS Depression Control Ref 0 TAB Megan Cote MD Mar 12, 2017 13:10
[2017-03-12 16:00] VITALS: BP 120/66; PULSE 88; RESP 18; TEMP 97.5; O2SAT 99
[2017-03-12] MEDS ORDERED: ALPR1TAB3 PO (16:21)
== END 2017-03-12 18:05 | DRG 482 ==
LOC: NEPC 13:37 → NEDA 15:35 → N06A 17:26
PROVIDERS: ADMIT Hospitalist; ATTEND Hospitalist
PROC: 0QS636Z Reposition Right Upper Femur with Intramedullary Internal Fixation Device, Percutaneous Approach (ICD-10-PCS; principal; 2017-03-10 08:00)
DX: S72.141A Displaced intertrochanteric fracture of right femur, initial encounter for closed fracture (principal); D64.9 Anemia, unspecified; D72.829 Elevated white blood cell count, unspecified; F43.10 Post-traumatic stress disorder, unspecified; R42 Dizziness and giddiness; W17.89XA Other fall from one level to another, initial encounter; Y93.89 Activity, other specified; Y92.008 Other place in unspecified non-institutional (private) residence as the place of occurrence of the external cause; W01.0XXA Fall on same level from slipping, tripping and stumbling without subsequent striking against object, initial encounter; Z82.49 Family history of ischemic heart disease and other diseases of the circulatory system; F17.210 Nicotine dependence, cigarettes, uncomplicated
CPT/HCPCS: 71010; 73502; 73552; 76000; 80048; 80053; 81001; 85014; 85018; 85025; 85610; 85730; 93005; 94150; J0690; J1650; J1885; J2405; J7030

== ENCOUNTER 2017-03-15 17:21 | Emergency (ER) | payer MEDICARE, OTHER ==
[~2017-03-15] VITALS: Ht 185.4 cm; Wt 55.0 kg
[~2017-03-15 17:21] MED LIST changes: -CHLO.12%30 SWISH-SPIT; -CLIN1CAP5 PO; +FLUO-1 PO; -HYDR-3533 PO; +MIRTA15 PO; +NORC5TAB PO; -SARA20TA PO; +SENN1TAB PO
[2017-03-15 17:37] VITALS: BP 142/63; PULSE 94; RESP 18; O2SAT 98
[2017-03-15] MEDS ORDERED: FLUO20CA12 PO (18:19)
[2017-03-15] MEDS ORDERED: XANA1TAB2 PO (18:21)
[2017-03-15 18:43] LABS: AUTOMATED NEUTROPHIL # 11.9 TH/MM3 (1.8-7.7); BASOPHIL # 0.1 TH/MM3 (0-0.2); BASOPHIL % 0.4 % (0.0-2.0); EOSINOPHIL # 0.3 TH/MM3 (0-0.4); EOSINOPHIL % 2.1 % (0.0-4.0); HEMATOCRIT 23.1 % (39.0-51.0); HEMO FLAGS DIFF FINAL; LYMPH % 16.1 % (9.0-44.0); LYMPHOCYTE # 2.6 TH/MM3 (1.0-4.8); MEAN CELL VOLUME 89.9 FL (80.0-100.0); MEAN CORPUSCULAR HEMOGLOBIN 30.4 PG (27.0-34.0); MEAN CORPUSCULAR HGB CONC 33.8 % (32.0-36.0); MONO % 8.8 % (0.0-8.0); NEUT % 72.6 % (16.0-70.0); PLATELET COUNT 300 TH/MM3 (150-450); RED BLOOD COUNT 2.57 MIL/MM3 (4.50-5.90); RED CELL DISTRIBUTION WIDTH 14.5 % (11.6-17.2); WHITE BLOOD COUNT 16.4 TH/MM3 (4.0-11.0)
--- NOTE | 2017-03-15 18:54 | PD ---
HPI . sent due to Hgb 7.1 Chief Complaint: Abnormal Results Time Seen by Provider: 18:46 Travel History International Travel<30 days: No Contact w/Intl Traveler<30days: No Traveled to known affect area: No History of Present Illness HPI 81-year-old male who was recently discharged on March 12, 2017 status post intertrochanteric fracture of the right hip with repair sent out by residential facility due to drop in hemoglobin. Prior to discharge on 03/12/2017 patient's hemoglobin was noted to be 7.7. Per reports today his hemoglobin is 7.1 and patient was sent out. Patient has no symptoms. He denies any shortness of breath, fatigue or chest pain. He tells me that he has some pain in his right hip. He is complaining that the facility and doctors do not know what they're doing. He denies any bloody or black stools, but tells me that he never really gets good look at it. Patient's past medical history significant for anxiety disorder, major depressive disorder, peripheral vertigo and recent fracture of the right hip. According to the documents from the halfway there was a venous Doppler of the right knee ordered this morning, however patient tells me was not performed. Patient was sent out for anemia, vertigo and hypertension. PFSH Past Medical History Autoimmune Disease: No Anxiety: Yes Heart Rhythm Problems: Yes (presently irregular ) Cancer: No Chemotherapy: No Diabetes: No Diminished Hearing: No Endocrine: No Gastrointestinal Disorders: Yes Genitourinary: No Implanted Vascular Access Dvce: No Respiratory: No Radiation Therapy: No Thyroid Disease: No Past Surgical History Abdominal Surgery: Yes (choly ) Cholecystectomy: Yes Pacemaker: No Other Surgery: Yes (GALLBLADDER REMOVAL ) Social History Alcohol Use: No Tobacco Use: No Substance Use: No Allergies-Medications (Allergen,Severity, Reaction): Coded Allergies: No Known Allergies (Unverified , 02/19/16) Reported Meds & Prescriptions Reported Meds & Active Scripts Active Senna Plus 8.6-50 mg (Sennosides-Docusate Sodium) 1 Tab Tab 1 Tab PO BID 30 Days [place] (Hydrocodone-Acetaminophen) 5-325 mg Tab 1 Tab PO Q4H PRN Reported Xanax (Alprazolam) 1 Mg Tab 1 Mg PO QID Fluoxetine (Fluoxetine HCl) 20 Mg Capsule 40 Mg PO DAILY Mirtazapine 15 Mg Tab 15 Mg PO HS Review of Systems General / Constitutional: No: Fever Eyes: No: Visual changes HENT: No: Headaches Cardiovascular: No: Chest Pain or Discomfort Respiratory: No: Shortness of Breath Gastrointestinal: No: Abdominal Pain Genitourinary: No: Dysuria Musculoskeletal: No: Pain Skin: No Rash Neurologic: No: Weakness Psychiatric: No: Depression Endocrine: No: Polydipsia Hematologic/Lymphatic: No: Easy Bruising Physical Exam Narrative GENERAL: AAO x 3, no acute distress, Well-nourished, well-developed patient. SKIN: Warm and dry. No visible rashes or bruising. Large resolving hematoma on the right lower back and right lateral thigh. Skin demonstrates pallor, capillary Refill normal HEAD: Normocephalic and atraumatic. EYES: No scleral icterus. No injection or drainage. Conjunctiva pale bilaterally ENT: No nasal drainage noted. Mucous membranes pink. Airway patent. NECK: Supple, trachea midline. No JVD. CARDIOVASCULAR: Regular rate and rhythm without murmurs, gallops, or rubs. RESPIRATORY: Breath sounds equal bilaterally. No accessory muscle use. No rhonchi or rales. GASTROINTESTINAL: Abdomen soft, non-tender, nondistended. Normoactive bowel sounds RECTAL: Corby RN Present, guaiac done at bedside and negative EXTREMITIES: No cyanosis, right lower extremity edema to popliteal area and knee BACK: No obvious deformity. NEURO: CN II-12 intact, parts delivery driver strength normal b/l, UE, LE on right side weak due to recent surgery PSYCH: AAO x 3, normal affect. Data Data Last Documented VS Vital Signs Date Time Temp Pulse Resp B/P Pulse Ox O2 Delivery O2 Flow Rate FiO2 03/15/17 19:39 98.5 89 16 114/60 96 Room Air Orders Complete Blood Count With Diff (03/15/17 18:26) Basic Metabolic Panel (Bmp) (03/15/17 18:26) Prothrombin Time / Inr (Pt) (03/15/17 18:46) Act Partial Throm Time (Ptt) (03/15/17 18:46) Us Leg Venous Doppler (03/15/17 18:54) Urinalysis - C+S If Indicated (03/15/17 19:02) Cath For Specimen (03/15/17 19:02) Chest, Single Ap (03/15/17 ) Labs Laboratory Tests Test 03/15/17 03/15/17 03/15/17 18:35 18:50 19:30 White Blood Count 16.4 TH/MM3 Red Blood Count 2.57 MIL/MM3 Hemoglobin 7.8 GM/DL Hematocrit 23.1 % Mean Corpuscular Volume 89.9 FL Mean Corpuscular Hemoglobin 30.4 PG Mean Corpuscular Hemoglobin 33.8 % Concent Red Cell Distribution Width 14.5 % Platelet Count 300 TH/MM3 Mean Platelet Volume 8.7 FL Neutrophils (%) (Auto) 72.6 % Lymphocytes (%) (Auto) 16.1 % Monocytes (%) (Auto) 8.8 % Eosinophils (%) (Auto) 2.1 % Basophils (%) (Auto) 0.4 % Neutrophils # (Auto) 11.9 TH/MM3 Lymphocytes # (Auto) 2.6 TH/MM3 Monocytes # (Auto) 1.4 TH/MM3 Eosinophils # (Auto) 0.3 TH/MM3 Basophils # (Auto) 0.1 TH/MM3 CBC Comment DIFF FINAL Differential Comment Sodium Level 139 MEQ/L Potassium Level 3.9 MEQ/L Chloride Level 104 MEQ/L Carbon Dioxide Level 26.7 MEQ/L Anion Gap 8 MEQ/L Blood Urea Nitrogen 34 MG/DL Creatinine 0.71 MG/DL Estimat Glomerular Filtration 106 ML/MIN Rate Random Glucose 103 MG/DL Calcium Level 8.0 MG/DL Prothrombin Time 11.4 SEC Prothromb Time International 1.0 RATIO Ratio Activated Partial 25.3 SEC Thromboplast Time Urine Color YELLOW Urine Turbidity HAZY Urine pH 5.5 Urine Specific [place] 1.020 Urine Protein TRACE mg/dL Urine Glucose (UA) NEG mg/dL Urine Ketones NEG mg/dL Urine Occult Blood NEG Urine Nitrite NEG Urine Bilirubin NEG Urine Urobilinogen 2.0 MG/DL Urine Leukocyte Esterase SMALL Urine WBC 3 /hpf Urine Squamous Epithelial <1 /hpf Cells Urine Hyaline Casts 2 /lpf Urine Granular Casts 2 /lpf Urine Mucus FEW /lpf Microscopic Urinalysis Comment CULT NOT INDICATED MDM Medical Decision Making Medical Screen Exam Complete: Yes Emergency Medical Condition: Yes Medical Record Reviewed: Yes Differential Diagnosis anemia, less likely GI Bleed, post surgical anemia, Narrative Course 81 yr old male here with drop in H/H per alf facility. IV access obtained. Labs ordered. There was some right knee swelling. Doppler ordered. Bedside guaiac negative. WBC elevated. UA ordered. CXR also ordered. I have reviewed patient's records and prior to discharge during his last hospitalization he had some leukocytosis. At that time WBC was 12+. There was no source of infection at that time. Last Impressions Chest X-Ray 03/15/17 0000 Signed Impressions: Service Date/Time: Wednesday, March 15, 2017 19:42 - CONCLUSION: 1. No focal infiltrates seen. 2. 4 mm nodule right apex, a new finding from prior chest x-rays. Ryan Chan MD CXR with new nodule. Will need outpatient f/u. Laboratory Tests Test 03/15/17 03/15/17 03/15/17 18:35 18:50 19:30 White Blood Count 16.4 TH/MM3 Red Blood Count 2.57 MIL/MM3 Hemoglobin 7.8 GM/DL Hematocrit 23.1 % Mean Corpuscular Volume 89.9 FL Mean Corpuscular Hemoglobin 30.4 PG Mean Corpuscular Hemoglobin 33.8 % Concent Red Cell Distribution Width 14.5 % Platelet Count 300 TH/MM3 Mean Platelet Volume 8.7 FL Neutrophils (%) (Auto) 72.6 % Lymphocytes (%) (Auto) 16.1 % Monocytes (%) (Auto) 8.8 % Eosinophils (%) (Auto) 2.1 % Basophils (%) (Auto) 0.4 % Neutrophils # (Auto) 11.9 TH/MM3 Lymphocytes # (Auto) 2.6 TH/MM3 Monocytes # (Auto) 1.4 TH/MM3 Eosinophils # (Auto) 0.3 TH/MM3 Basophils # (Auto) 0.1 TH/MM3 CBC Comment DIFF FINAL Differential Comment Sodium Level 139 MEQ/L Potassium Level 3.9 MEQ/L Chloride Level 104 MEQ/L Carbon Dioxide Level 26.7 MEQ/L Anion Gap 8 MEQ/L Blood Urea Nitrogen 34 MG/DL Creatinine 0.71 MG/DL Estimat Glomerular Filtration 106 ML/MIN Rate Random Glucose 103 MG/DL Calcium Level 8.0 MG/DL Prothrombin Time 11.4 SEC Prothromb Time International 1.0 RATIO Ratio Activated Partial 25.3 SEC Thromboplast Time Urine Color YELLOW Urine Turbidity HAZY Urine pH 5.5 Urine Specific [place] 1.020 Urine Protein TRACE mg/dL Urine Glucose (UA) NEG mg/dL Urine Ketones NEG mg/dL Urine Occult Blood NEG Urine Nitrite NEG Urine Bilirubin NEG Urine Urobilinogen 2.0 MG/DL Urine Leukocyte Esterase SMALL Urine WBC 3 /hpf Urine Squamous Epithelial <1 /hpf Cells Urine Hyaline Casts 2 /lpf Urine Granular Casts 2 /lpf Urine Mucus FEW /lpf Microscopic Urinalysis Comment CULT NOT INDICATED Last Impressions Lower Extremity Ultrasound 03/15/17 1854 Signed Impressions: Service Date/Time: Wednesday, March 15, 2017 20:10 - CONCLUSION: The study is negative for deep venous thrombosis right lower extremity. Ryan Chan MD Chest X-Ray 03/15/17 0000 Signed Impressions: Service Date/Time: Wednesday, March 15, 2017 19:42 - CONCLUSION: 1. No focal infiltrates seen. 2. 4 mm nodule right apex, a new finding from prior chest x-rays. Ryan Chan MD Discussed all results with patient and his daughter at bedside. Advised outpatient f/u for cxr. Patient cleared for discharge to return to residential facility. Patient verbalized understanding of instructions, questions were answered, and thanked me for their care. I advised them if their condition worsens, please return to the nearest emergency room for further care. Taste was discussed with my attending Dr. Whiting, who is in agreement with the plan. Diagnosis Primary Impression: Anemia Qualified Code: D64.9 - Anemia, unspecified type Additional Impression: Pulmonary nodule Patient Instructions: General Instructions Additional Instructions: Follow-up with your primary care provider regarding the pulmonary nodule that we discovered on chest x-ray. Return to the emergency department for any worsening of your condition. Med/Other Pt SpecificInfo: No Change to Meds Disposition: 03 DISCHARGE TO SNF Condition: Stable Crystal Mccoy Mar 15, 2017 18:54
[2017-03-15 19:06] LABS: BICARBONATE 26.7 MEQ/L (21.0-32.0); POTASSIUM 3.9 MEQ/L (3.5-5.1)
[2017-03-15 19:21] LABS: APTT (PATIENT) 25.3 SEC (24.3-30.1); PROTHROMBIN TIME - PATIENT 11.4 SEC (9.8-11.6)
[2017-03-15 19:39] VITALS: BP 114/60; PULSE 89; RESP 16; TEMP 98.5; O2SAT 96
[2017-03-15 20:03] LABS: BLOOD, URINE NEG (NEG); COMMENT (UR) CULT NOT INDICATED; CULTURE IF INDICATED CULT NOT INDICATED; GLUCOSE,URINE NEG (NEG); GRANULAR CAST, URINE 2 /lpf; HYALINE CAST, URINE 2 /lpf (RARE); KETONE, URINE NEG (NEG); MUCUS URINE FEW /lpf (OCC); NITRITE,URINE NEG (NEG); PH, URINE 5.5 (5.0-8.5); SQUAMOUS EPITHELIAL CELL URINE <1 /hpf (0-5); URINE COLOR YELLOW (YELLW/STRAW)
--- NOTE | 2017-03-15 20:21 | RADRPT ---
EXAM DATE/TIME: 03/15/2017 19:42 [facility] COMPARISON: CHEST SINGLE AP, October 03, 2014, 15:38. CHEST SINGLE AP, August 14, 2014, 14:53. CHEST SINGLE A P, March 09, 2017, 14:35. INDICATIONS : Cough starting today MEDICAL HISTORY : Cardiovascular disease SURGICAL HISTORY : None. ENCOUNTER: Initial ACUITY: 1 day PAIN SCORE: 0/10 LOCATION: Bilateral chest FINDINGS: Lungs are hyperaerated but clear. No focal infiltrates seen. There is a round nodule in the right a pex which measures 4 mm. The heart is normal size. Mild tortuosity descending thoracic aorta. CONCLUSION: 1. No focal infiltrates seen. 2. 4 mm nodule right apex, a new finding from prior chest x-rays. Ryan Chan MD on March 15, 2017 at 20:17 Board Certified Radiologist. This report was verified electronically.
--- NOTE | 2017-03-15 21:16 | RADRPT ---
EXAM DATE/TIME: 03/15/2017 20:10 [facility] COMPARISON: No previous studies available for comparison. INDICATIONS : Right leg swelling. MEDICAL HISTORY : Dizziness. Irregular heartbeat. Anxiety. Right leg swelling. SURGICAL HISTORY : Cholecystectomy. ENCOUNTER: Initial ACUITY: 2 day PAIN SCORE: 10/10 LOCATION: Right leg. TECHNIQUE: Venous ultrasound of the leg was performed from the inguinal ligament to the proximal calf. Real-sneha e, color Doppler and spectral tracing, compression and augmentation techniques were used. FINDINGS: There is normal compressibility of the deep venous system from the inguinal region to the proximal ca lf. No echogenic clot is seen in the lumen of the common femoral, femoral, popliteal, and posterior tibial veins. There is a normal response of the venous system to proximal and distal augmentation an d respiration. CONCLUSION: The study is negative for deep venous thrombosis right lower extremity. Ryan Chan MD on March 15, 2017 at 21:14 Board Certified Radiologist. This report was verified electronically.
[2017-03-15] MEDS ORDERED: ACETAMINOPHEN/HYDROcodone 325 MG/5 MG TAB PO ONE (22:30)
[2017-03-15] MEDS ORDERED: ALPRAZolam 1 MG TAB PO ONE (22:30)
[2017-03-15] MEDS ORDERED: MIRTAZAPINE 15 MG TAB PO ONE (22:30)
[2017-03-15 23:00] VITALS: BP 121/68; PULSE 71; RESP 16; TEMP 98.5; O2SAT 98
[2017-03-16 04:59] VITALS: BP 121/66; PULSE 76; RESP 16; O2SAT 98
[2017-03-16 11:00] VITALS: BP 120/65; PULSE 74; RESP 16; O2SAT 98
== END 2017-03-16 11:22 ==
LOC: NEPE 17:21
DX: D64.9 Anemia, unspecified (principal); R91.1 Solitary pulmonary nodule
CPT/HCPCS: 71010; 80048; 81001; 85025; 85610; 85730; 93971; 99285